=== PATIENT | female | born 1975 | race Caucasian/White ===

== ENCOUNTER 2016-09-28 07:23 | Observation (INO) | payer OTHER ==
[2016-09-28] MEDS ORDERED: Aspirin Low Dose CHEW TAB* 81 MG PO ONE (07:54)
[2016-09-28 08:07] LABS: Hematocrit 42 % (35-47); Hemoglobin 14.2 g/dl (12.0-16.0); Mean Corpuscular HGB Conc 34 g/dl (31-36); Mean Corpuscular Hemoglobin 31 pg (27-31); Mean Corpuscular Volume 91 fL (80-97); Mean Platelet Volume 9 um3 (7.4-10.4); Red Blood Count 4.64 10^6/ul (4.0-5.4); Red Cell Distribution Width 13 % (10.5-15); White Blood Count 12.9 10^3/ul (3.5-10.8)
[2016-09-28] MEDS ORDERED: NS 0.9% 1000 ML* 1,000 ML IV ONE (08:07)
[2016-09-28 08:18] LABS: Albumin 3.7 g/dL (3.2-5.2); BUN/Creatinine Ratio 15.8 (8-20); Calcium 8.8 mg/dL (8.6-10.3); EGFR African American 77.7 (>60); EGFR Non-African American 60.4 (>60); Globulin 3.5 g/dL (2-4); Potassium 3.8 mmol/L (3.5-5.0); Total Bilirubin 0.6 mg/dL (0.2-1.0); Total Protein 7.2 g/dL (6.4-8.9)
[2016-09-28] MEDS ORDERED: Iohexol 350* (CONTRAST) 500 ML MDV IV ONE (08:44)
--- NOTE | 2016-09-28 08:48 | RAD ---
Indication: Chest pain and shortness of breath began last night. Nausea and vomiting shortly afterwards. History of neurofibromatosis. Comparison: None. Technique: Sitting AP and lateral chest views. Report: Clear lungs and pleural spaces. Negative for pneumothorax. The heart, pulmonary vasculature, and mediastinal contours are unremarkable. Negative for free air beneath the diaphragm. Unremarkable osseous structures and soft tissue contours. IMPRESSION: No evidence for acute intrathoracic disease.
[2016-09-28] MEDS ORDERED: Nitroglycerin 0.4 MG/HR PATCH* (10 MG) TRANSDERM ONE (08:56)
[2016-09-28] MEDS ORDERED: Ondansetron INJ* 2 MG/ML VIAL IV ONE (08:56)
--- NOTE | 2016-09-28 09:40 | RAD ---
INDICATION: Pleuritic chest pain. History of neurofibromatosis. COMPARISON: Chest radiograph of the same date. TECHNIQUE: Multidetector CT images were obtained from the lung apices to the upper abdomen with 71 mL Omnipaque 350 IV contrast. Pulmonary angiogram protocol. Multiplanar reformation including with maximum intensity projection. REPORT: Aside from minimal dependent subsegmental atelectasis the lungs and pleural spaces are clear. Negative for central endobronchial lesions. Negative for pneumothorax. Minimal residual thymic tissue in the anterior mediastinum without concern. Negative for thoracic lymphadenopathy, cardiomegaly, pericardial effusion. Normal diameter thoracic aorta. Negative for dissection of the thoracic aorta. No filling defects are identified from the main to the subsegmental pulmonary arteries to indicate presence of a pulmonary embolism. Limited images through the upper abdomen are unremarkable. Negative for suspicious osseous lesions. IMPRESSION: 1. No evidence for pulmonary embolism. 2. No evidence for acute intrathoracic disease.
--- NOTE | 2016-09-28 11:00 | ADMNOTE ---
Subjective Date of Service: 09/28/16 Interval History: ADMISSION HISTORY AND PHYSICAL EXAM: Allergies Allergy/AdvReac Type Severity Reaction Status Date / Time Carbamazepine [From Tegretol] Allergy WBC - Verified 09/28/16 07:33 LEVELS DROPPED SEVERELY HOME MEDICATIONS: NONE HPI: Patient was in her usual state of health until she awoke from sleep about 12: 30 AM today with midsternal chest pain. It has been constant since then, perhaps went from level 10 to level 8 09/27. No cough. SOme SOB. No unusual activity in the recent past. No similar episodes in the past. She is relatively sedentary. Family History: Findings - Mother had coronary cath, nothing serious found. Social History: Findings - Smokes. Her mother is her SDM. She lives with her mother. Unemployed. Past Medical History: Findings - Multiple removals of neurofibromas. Partial hysterectomy. Review of Systems - Measurements Intake and Output: Intake and Output Last 24 Hours 09/26/16 09/27/16 09/28/16 09/29/16 06:59 06:59 06:59 06:59 Weight 179 lb - Review of Systems Constitutional Symptoms: Negative: Weight Gain, Weight Loss, Weakness, Fatigue, Fever, Night Sweats, Unexplained Falls, Other Dermatology: Positive: Normal HEENT: Positive: Normal Eyes: Positive: Normal Thyroid: Positive: Normal Pulmonary: Positive: Normal Cardiology: Positive: Chest Pain Gastroenterology: Positive: Normal Genital - Urinary: Positive: Normal Musculoskeletal: Negative: Joint Pain, Joint Stiffness, Arthritis, Osteoporosis, Low Back Pain , Sciatica, Joint Deformities, Kyphoscoliosis, Other Endocrinology: Positive: Normal Hematologic/Lymphatic: Negative: Anemia, Easy Brusing, Hx Leukemia, Hx Lymphoma, Use of Anticoagulant, Use of Antiplatelet Drugs, Other Neurology: Positive: Normal Psychiatry: Positive: Normal Allergic/Immunologic: Negative: Hx Anaphylaxis, Hx Angioedema, Hx Environmental, Hx Seasonal, Athsma, Hx HIV, Immunocompromise, Swollen Glands LymphNodes, Other Objective Vital Signs 09/28/16 09/28/16 09/28/16 07:31 07:32 07:33 Temperature 99.8 F Pulse Rate 79 73 Respiratory 20 16 Rate Blood Pressure 110/93 97/62 (mmHg) O2 Sat by Pulse 98 100 Oximetry 09/28/16 09/28/16 09/28/16 08:00 08:27 08:30 Temperature Pulse Rate 73 73 Respiratory 19 15 Rate Blood Pressure 89/68 99/66 96/65 (mmHg) O2 Sat by Pulse 98 98 Oximetry 09/28/16 09/28/16 09/28/16 08:46 09:00 10:00 Temperature Pulse Rate 77 88 Respiratory 16 15 Rate Blood Pressure 101/66 103/68 (mmHg) O2 Sat by Pulse 100 100 Oximetry Oxygen Devices in Use Now: Nasal Cannula Appearance: Alert, partly up on ED stretcher. Neutral affect. Looks comfortable. Eyes: No Scleral Icterus Ears/Nose/Mouth/Throat: Clear Oropharnyx, Mucous Membranes Moist Neck: NL Appearance and Movements; NL JVP, No Thyroid Enlargement, Masses Respiratory: Symmetrical Chest Expansion and Respiratory Effort, Clear to Auscultation, Clear to Percussion Cardiovascular: NL Sounds; No Murmurs; No JVD, RRR, No Edema, - - mild sternal pressure reproduces/increases her chest pain. Abdominal: NL Sounds; No Tenderness; No Distention, No Hepatosplenomegaly, - Extremities: No Edema, No Clubbing, Cyanosis, - Skin: No Rash or Ulcers, - - innumerable neurofibromas, confluent on face, many on upper trunk. Neurological: Alert and Oriented x 3, NL Sensation Result Diagrams: 09/28/16 07:27 09/28/16 07:27 Assess/Plan/Problems-Billing Assessment: - Patient Problems (1) Chest wall pain Current Visit: Yes Status: Acute Code(s): R07.89 - OTHER CHEST PAIN SNOMED Code(s): 105971884 Comment: Ibuprofen 600 mg ordered 0800 and 1700 daily plus q 6 hr PRN. I note she uses ibuprofen at home for occ headaches. (2) Tobacco abuse Current Visit: Yes Status: Acute Code(s): Z72.0 - TOBACCO USE SNOMED Code( s): 236561350 Comment: Patient advised to quit smoking and avoid second hand smoke. (3) Neurofibromatosis Current Visit: Yes Status: Acute Comment: Dx noted. (4) Seizure disorder Current Visit: Yes Status: Acute Code(s): G40.909 - EPILEPSY, UNSP, NOT INTRACTABLE, WITHOUT STATUS EPILEPTICUS SNOMED Code(s): 185891821 Comment: Many years since last seizure. Not on AED. Carbamazepine caused drop in blood counts.
[2016-09-28] MEDS ORDERED: Ibuprofen TAB* 600 MG PO PRN (11:15)
--- NOTE | 2016-09-28 13:59 | ED ---
IMinisterio,Juliana, scribed for Juan Hernandez MD on 09/28/16 at 0813 . HPI Chest Pain - HPI Summary HPI Summary: This 41 y/o female presents to ED for constant mid sternal 8/10 CP since 0030 AM this morning. Pain has been waxing and waning since the time of onset, but does not radiate up to throat, jaws, or shoulder. Deep breaths makes the pain worse. Pt denies any BLE pain/tenderness, SOB, or diaphoresis. Blood pressure of 89/63 is noted at time of the initial evaluation. PMHx includes type I neurofibromatosis, but does not include HTN, HLD, or DM. PSHx includes tubal ligation and hysterectomy. FHx significant for positive MT to father in his 40s. Pt is nonsmoker, nondrinker, and does not abuse any substance. - History of Current Complaint Chief Complaint: EDChestPainROMI Time Seen by Provider: 09/28/16 07:35 Hx Obtained From: Patient Onset/Duration: Started Hours Ago, Atraumatic, Still Present Timing: Constant Initial Severity: Moderate Current Severity: Moderate Pain Intensity: 8 Pain Scale Used: 0-10 Numeric Chest Pain Location: Mid Sternal Chest Pain Radiates: No Character: Dull/Aching Aggravating Factor(s): Deep Breaths Alleviating Factor(s): Nothing Associated Signs and Symptoms: Positive: Chest Pain. Negative: Shortness of Breath, Fever - Allergy/Home Medications Allergies/Adverse Reactions: Allergies Allergy/AdvReac Type Severity Reaction Status Date / Time Carbamazepine [From Tegretol] Allergy WBC - Verified 09/28/16 07:33 LEVELS DROPPED SEVERELY PMH/Surg Hx/FS Hx/Imm Hx Endocrine/Hematology History: Denies: Hx Diabetes Cardiovascular History: Denies: Hx Hypertension, Hx Pacemaker/ICD History: Denies: Hx Renal Disease Sensory History: Denies: Hx Hearing Aid Psychiatric History: Denies: Hx Panic Disorder - Cancer History Hx Chemotherapy: No Hx Radiation Therapy: No - Surgical History Surgery Procedure, Year, and Place: TUBAL LIGATION 1999. HYSTERECTOMY 2013. FACIAL - NEUROFIBROMATOSIS Infectious Disease History: Denies: Traveled Outside the [place] in Last 30 Days - Family History Known Family History: Positive: Cardiac Disease - positive for MT to father in his 40s. , Other - Positive for breast CA. - Social History Occupation: Disabled Alcohol Use: None Hx Substance Use: No Substance Use Type: Reports: None Hx Tobacco Use: No Smoking Status (MU): Never Smoked Tobacco Review of Systems Negative: Fever, Chills Negative: Sore Throat, Other - eye redness Positive: Chest Pain Negative: Shortness Of Breath, Cough Negative: Abdominal Pain, Vomiting Negative: dysuria, hematuria Negative: Myalgia, Edema Negative: Rash Neurological: Other - negative dizziness Negative: Anxious, Depressed All Other Systems Reviewed And Are Negative: Yes Physical Exam - Summary Physical Exam Summary: Constitutional: Well-developed, Well-nourished, Alert. (+) Distressed, mild to moderate Skin: Warm, Dry. Chronic skin changes secondary to neurofibromatosis. HENT: Normocephalic; Atraumatic Eyes: Conjunctiva normal Neck: Musculoskeletal ROM normal neck. (-) JVD, (-) Stridor, (-) Tracheal deviation Cardio: Rhythm regular, rate normal, Heart sounds normal; Intact distal pulses; The pedal pulses are 2+ and symmetric. Radial pulses are 2+ and symmetric. (-) Murmur. Pulmonary/Chest wall: Effort normal. (-) Respiratory distress, (-) Wheezes, (-) Rales Abd: Soft, (-) Tenderness, (-) Distension, (-) Guarding, (-) Rebound Musculoskeletal: (-) Edema Lymph: (-) Cervical adenopathy Neuro: Alert, Oriented x3 Psych: Mood and affect Normal Triage Information Reviewed: Yes Vital Signs On Initial Exam: Initial Vitals BP 110/93 09/28/16 07:31 Vital Signs Reviewed: Yes Diagnostics - Vital Signs Vital Signs Temp Pulse Resp BP Pulse Ox 09/28/16 07:33 99.8 F 73 16 97/62 100 09/28/16 07:32 79 20 98 09/28/16 07:31 110/93 - Laboratory Result Diagrams: 09/28/16 07:27 09/28/16 07:27 Lab Statement: Any lab studies that have been ordered have been reviewed, and results considered in the medical decision making process. - Radiology CXR Xray Interpretation: No Acute Changes Radiology Interpretation Completed By: Radiologist - CT CTA Chest/Thorax CT Interpretation: No Acute Changes - 1. No evidence for pulmonary embolism. 2. No evidence for acute intrathoracic disease. CT Interpretation Completed By: Radiologist - EKG 0717 Cardiac Rate: NL - 73 bpm EKG Rhythm: Sinus Rhythm ST Segment: Normal Ectopy: None Chest Pain Course/Dx - Course Assessment/Plan: THis 41 y/o female presents to ED for acute CP since 0300 AM this morning. FHx is significant for CAD to mother, who had angioplasty in early age, and father, who had his first MT in his 40s. Blood work was wnl with negative trop. CXR and CTA chest/thorax did not indicate any etiologies. Hospitalist was consulted, and pt was admitted for observation and definitive care. - Diagnoses Provider Diagnoses: Chest pain - Provider Notifications Discussed Care Of Patient With: Dr. Crowley (Hospitalist) at 1005 AM Time Discussed With Above Provider: 10:05 Instructed by Provider To: Admit As Inpatient Discharge - Discharge Plan Condition: Stable Disposition: ADMITTED TO [facility] Referrals: Aleah Ramos PA [Primary Care Provider] - The documentation as recorded by the Ministerio jin Soohyun accurately reflects the service I personally performed and the decisions made by , Juan Hernandez MD.
[2016-09-28] MEDS: Ibuprofen TAB* 600 MG PO SCH (16:06)
[2016-09-28] MEDS ORDERED: NS 0.9% 500 ML* 500 ML IV SCH (21:00)
[2016-09-29] MEDS: Ibuprofen TAB* 600 MG PO SCH (08:14)
[2016-09-29 08:48] VITALS: BP 94/51
[2016-09-29] MEDS ORDERED: Influenza VAC *QUAD* 2016-17* 0.5 ML SYRINGE IM ONE (09:00)
--- NOTE | 2016-09-29 10:49 | DCNOTE ---
Patient seen this morning. Has no complaints, says she has not had any chest pain since yesterday afternoon. On exam, RRR, s1 and s2 present, no m/g/r, abd soft, NTND, BS+, lungs clear, numerous NF lesions on face Likely MSK chest pain, d/c home today
--- NOTE | 2016-09-30 19:40 | DS ---
DISCHARGE SUMMARY: DATE OF ADMISSION: 09/28/16 DATE OF DISCHARGE: 09/29/16 PRIMARY CARE PHYSICIAN: ZAK Seay. PRINCIPAL DISCHARGE DIAGNOSIS: Chest pain. SECONDARY DIAGNOSES: 1. Neurofibromatosis. 2. Seizure disorder. STUDIES DONE DURING HOSPITALIZATION: Chest x-ray: Impression: No evidence for acute intrathoracic disease. CTA of the chest: No evidence for pulmonary embolism, no evidence for acute intrathoracic disease. DISCHARGE MEDICATION REGIMEN: None. HISTORY OF PRESENT ILLNESS AND HOSPITAL SUMMARY: Please see the full history and physical by Dr. Walker Crowley for full details. Briefly, Ms. Fuentes is a 41 -year- old female with past medical history as above, who presented to the hospital with midsternal chest pain that was quite severe. She had no family history of coronary disease but she was a smoker. She was admitted to the hospital and it was felt that this was probably due to musculoskeletal issue. She had 3 negative troponins and an unremarkable EKG. She was treated with ibuprofen with resolution of her pain. She did have some hypotension in the hospital. She states her blood pressures usually run low, this was a little bit lower than normal. She did not feel any lightheadedness or dizziness with the blood pressures. She was discharged home with followup with her PCP as an outpatient. TIME SPENT: Total time spent on this discharge, 35 minutes. This is a summary of the hospitalization, please see the full medical record for further details. CC: ZAK Seay* [id number]/[facility] #: [id number] MTDD
== END 2016-09-29 11:20 | disposition home or self-care (01) ==
LOC: ED 07:23 → MEDTELE 11:18 → MED 14:10
PROVIDERS: ADMIT Internal Medicine; ATTEND Hospitalist
DX: R07.9 Chest pain, unspecified (principal); R06.02 Shortness of breath; Q85.00 Neurofibromatosis, unspecified; G40.909 Epilepsy, unspecified, not intractable, without status epilepticus; Z23 Encounter for immunization; F17.200 Nicotine dependence, unspecified, uncomplicated; Z88.8 Allergy status to other drugs, medicaments and biological substances
CPT/HCPCS: 36415; 71020; 71275; 80053; 83605; 84484; 85025; 90471; 90686; 93005; 96361; 96374; 99284; A9270-GY; G0008; G0378; J2405; Q9967

== ENCOUNTER 2016-11-21 11:31 | Emergency (ER) | payer OTHER ==
--- NOTE | 2016-11-21 11:57 | ED ---
Skin Complaint - HPI Summary HPI Summary: 41 F presents with itching and pain in right foot after getting bite by a possible spider bite in the night three nights ago. She was given prednisone and told to take bendaryl. She said she has notice some redness around the area. She denies any fever, pus, or decrease range of motion in foot. She denies any injury to the foot. - History of Current Complaint Chief Complaint: EDRashSkinAbscess Time Seen by Provider: 11/21/16 11:47 Stated Complaint: POSS SPIDER BITE Pain Intensity: 10 - Additional Pertinent History Primary Care Physician: DIMITRIOS - Allergy/Home Medications Allergies/Adverse Reactions: Allergies Allergy/AdvReac Type Severity Reaction Status Date / Time Carbamazepine [From Tegretol] Allergy WBC - Verified 11/21/16 11:38 LEVELS DROPPED SEVERELY PMH/Surg Hx/FS Hx/Imm Hx Endocrine/Hematology History: Denies: Hx Diabetes Cardiovascular History: Denies: Hx Hypertension, Hx Pacemaker/ICD History: Denies: Hx Renal Disease Musculoskeletal History: Denies: Hx Arthritis, Hx Osteoporosis Sensory History: Denies: Hx Hearing Aid Neurological History: Reports: Other Neuro Impairments/Disorders - neurofibosis Psychiatric History: Denies: Hx Panic Disorder - Cancer History Hx Chemotherapy: No Hx Radiation Therapy: No - Surgical History Surgery Procedure, Year, and Place: TUBAL LIGATION 1999. HYSTERECTOMY 2013. FACIAL - NEUROFIBROMATOSIS Infectious Disease History: No Infectious Disease History: Denies: Traveled Outside the [place] in Last 30 Days - Family History Known Family History: Positive: Cardiac Disease - positive for [place] to father in his 40s. , Other - Positive for breast CA. - Social History Alcohol Use: None Hx Substance Use: No Substance Use Type: Reports: None Hx Tobacco Use: No Smoking Status (MU): Former Smoker Review of Systems Negative: Fever Negative: Chest Pain Negative: Shortness Of Breath Positive: Other - bite like wounds on right ankle All Other Systems Reviewed And Are Negative: Yes Physical Exam Triage Information Reviewed: Yes Vital Signs On Initial Exam: Initial Vitals Temp Pulse Resp BP Pulse Ox 98.2 F 70 16 114/59 100 11/21/16 11:38 11/21/16 11:38 11/21/16 11:38 11/21/16 11:38 11/21/16 11:38 Vital Signs Reviewed: Yes Appearance: Positive: Well-Appearing Skin: Positive: Warm, Dry, Other - bite like wound present on top of foot with scratches near area with 1/2 cm surrounding erythema around area Head/Face: Positive: Normal Head/Face Inspection Eyes: Positive: Normal, Conjunctiva Clear Respiratory/Lung Sounds: Positive: Clear to Auscultation, Breath Sounds Present Cardiovascular: Positive: Normal, RRR Diagnostics - Vital Signs Vital Signs Temp Pulse Resp BP Pulse Ox 11/21/16 11:38 98.2 F 70 16 114/59 100 - Laboratory Lab Statement: Any lab studies that have been ordered have been reviewed, and results considered in the medical decision making process. Course/Dx - Course Course Of Treatment: 41F presents with bite like lesion on right foot that has been there for 3 days. is taking bendaryl and prednisone. noticed that some redness around lesions and pain and ithcing has gotten worst. Will start on keflex and encouraged to add topical OTC hydrocoritsone to help with the itching. Patient understands and agrees with plan - Differential Diagnoses - Skin Complaint Differential Diagnoses: Contact Dermatitis, Local Allergic Reaction, Other - bite lesion - Diagnoses Provider Diagnoses: Reaction to insect bite Discharge - Discharge Plan Condition: Good Disposition: HOME Prescriptions: Cephalexin CAP* [Keflex CAP*] 500 mg PO BID #14 cap Patient Education Materials: Contact Dermatitis (ED) Referrals: Aleah Ramos PA [Primary Care Provider] - Additional Instructions: Continue prednisone Continue Benadryl every 6 hours Apply OTC hydrocortisone three times a day Take antibiotic twice a day for 7 days Follow up with primary if no improvement in 5 days Return to ED if develop fever, spreading redness, or pus or any new or worsening symptoms
[2016-11-21 12:18] VITALS: BP 91/56
== END 2016-11-21 12:29 | disposition home or self-care (01) ==
LOC: ED 11:31
DX: S90.861A Insect bite (nonvenomous), right foot, initial encounter (principal); W57.XXXA Bitten or stung by nonvenomous insect and other nonvenomous arthropods, initial encounter; Y92.9 Unspecified place or not applicable
CPT/HCPCS: 36415; 86703; 99282

== ENCOUNTER 2017-09-30 00:34 | Emergency (ER) | payer OTHER ==
[2017-09-30] MEDS ORDERED: Acetaminophen TAB* 325 MG PO ONE (01:08)
[2017-09-30] MEDS ORDERED: Aspirin Low Dose CHEW TAB* 81 MG PO ONE (01:08)
[2017-09-30] MEDS ORDERED: Ketorolac INJ* 30 MG/ML 1 ML VIAL IV ONE (01:08)
[2017-09-30] MEDS ORDERED: NS 0.9% 1000 ML* 1,000 ML IV ONE (01:08)
[2017-09-30 01:49] LABS: ABS Basophils 0 10^3/ul (0-0.2); ABS Eosinophils 0.3 10^3/ul (0-0.6); ABS Lymphocytes 1.5 10^3/ul (1.0-4.8); ABS Monocytes 0.8 10^3/ul (0-0.8); ABS Neutrophils 9.8 10^3/ul (1.5-7.7); ABS Nucleated RBC 0 10^3/ul; Hematocrit 41 % (35-47); Hemoglobin 13.9 g/dl (12.0-16.0); Lymphocyte % 12.2 % (25-47); Mean Corpuscular HGB Conc 34 g/dl (31-36); Mean Corpuscular Hemoglobin 31 pg (27-31); Mean Corpuscular Volume 91 fL (80-97); Mean Platelet Volume 9 um3 (7.4-10.4); Nucleated Red Blood Cells % 0; Platelet Count 177 10^3/ul (150-450); Red Cell Distribution Width 13 % (10.5-15); White Blood Count 12.4 10^3/ul (3.5-10.8)
[2017-09-30 02:01] LABS: INR 0.95 (0.77-1.02)
[2017-09-30 02:38] LABS: EGFR Non-African American 58.1 (>60)
[2017-09-30] MEDS ORDERED: Ondansetron INJ* 2 MG/ML VIAL IV ONE ×2 (02:47→02:50)
[2017-09-30] MEDS ORDERED: Morphine INJ* 4 MG/ML 1 ML CARPUJECT IV ONE (02:47)
[2017-09-30] MEDS ORDERED: Morphine INJ* 4 MG/ML 1 ML CARPUJECT IM ONE (02:50)
[2017-09-30] MEDS ORDERED: Iodixanol* (CONTRAST) 320 MG/ML 100 ML SDV IV ONE (02:54)
[2017-09-30 04:40] VITALS: BP 130/74
--- NOTE | 2017-09-30 08:00 | RAD ---
HISTORY: Chest pain COMPARISONS: September 28, 2016 VIEWS: 1: frontal portable view of the chest at 1:25 AM FINDINGS: LINES AND TUBES: None. CARDIOMEDIASTINAL SILHOUETTE: The cardiomediastinal silhouette is normal for portable technique. PLEURA: The costophrenic angles are sharp. No pleural abnormalities are noted. LUNG PARENCHYMA: The lungs are clear. ABDOMEN: The upper abdomen is clear. There is no subphrenic gas. BONES AND SOFT TISSUES: No bone or soft tissue abnormalities are noted. IMPRESSION: NO ACTIVE CARDIOPULMONARY DISEASE.
--- NOTE | 2017-09-30 08:07 | RAD ---
Indication: Shortness of breath, evaluate for pulmonary embolus. CTA of the chest was performed after IV contrast administration. Coronal and sagittal reconstructed images were obtained. Pulmonary arterial tree is well opacified. There are no filling defects present to suggest pulmonary embolus. Inferior thyroid lobes are unremarkable. No mediastinal or hilar adenopathy is noted. The heart demonstrates no pericardial effusion. There is vague soft tissue in the anterior mediastinum likely representing residual thymus. The trachea and major bronchi appear patent. The lung pool demonstrate no pleural fluid, nodules or masses. Dependent changes are noted in the lung bases. No alveolar consolidation is noted. A small 2 mm nodule is noted in the left upper lobe reference image 22 of 74. No other nodules are noted. The visualized abdominal organs are grossly unremarkable. The bony structures are grossly unremarkable. IMPRESSION: No evidence of pulmonary embolus is noted.
--- NOTE | 2017-10-01 00:40 | ED ---
Kaz Pinon Angela, scribed for Skyler Cabrera MD on 09/30/17 at 0056 . HPI Chest Pain - HPI Summary HPI Summary: This pt is a 42 y/o female presenting to [facility] via EMS c/o mid sternal chest pain since 22:30 last night (09/29/17). Pt reports her chest pain radiates down her right arm. She describes her chest pain as constant, sharp and pressure pain. Pt notes she has a pleuritic chest pain. Pt rates her pain 10/10 in severity. Associated symptoms include nausea, vomiting, and chills. She denies fever, cough, congestion. EMS administered NTG en route. PMHx includes seizures. - History of Current Complaint Chief Complaint: EDChestWallPain Time Seen by Provider: 09/30/17 00:38 Hx Obtained From: Patient Onset/Duration: Started Hours Ago, Still Present Timing: Lasting Hours Current Severity: Severe Pain Intensity: 10 Pain Scale Used: 0-10 Numeric Chest Pain Location: Mid Sternal Chest Pain Radiates: Yes Chest Pain Radiates To:: Arm - right Character: Pressure/Squeezing - pressure, Sharp/Stabbing - sharp Aggravating Factor(s): Nothing Alleviating Factor(s): Nothing Associated Signs and Symptoms: Positive: Chills, Vomiting, Other: - POS: nausea. Negative: Fever, Cough, Nasal Congestion - Additional Pertinent History Primary Care Physician: DIMITRIOS - Allergy/Home Medications Allergies/Adverse Reactions: Allergies Allergy/AdvReac Type Severity Reaction Status Date / Time Carbamazepine [From Tegretol] Allergy WBC - Verified 11/21/16 11:38 LEVELS DROPPED SEVERELY PMH/Surg Hx/FS Hx/Imm Hx Endocrine/Hematology History: Denies: Hx Diabetes Cardiovascular History: Denies: Hx Hypertension, Hx Pacemaker/ICD History: Denies: Hx Renal Disease Musculoskeletal History: Denies: Hx Arthritis, Hx Osteoporosis Sensory History: Denies: Hx Hearing Aid Neurological History: Reports: Other Neuro Impairments/Disorders - neurofibosis Psychiatric History: Denies: Hx Panic Disorder - Cancer History Hx Chemotherapy: No Hx Radiation Therapy: No - Surgical History Surgery Procedure, Year, and Place: TUBAL LIGATION 1999. HYSTERECTOMY 2013. FACIAL - NEUROFIBROMATOSIS Infectious Disease History: No Infectious Disease History: Denies: Traveled Outside the [place] in Last 30 Days - Family History Known Family History: Positive: Cardiac Disease - positive for [place] to father in his 40s. , Other - Positive for breast CA. - Social History Alcohol Use: None Hx Substance Use: No Substance Use Type: Reports: None Hx Tobacco Use: No Smoking Status (MU): Former Smoker Review of Systems Positive: Chills. Negative: Fever Negative: Other - congestion Positive: Chest Pain Negative: Cough Positive: Vomiting, Nausea Musculoskeletal: Negative Skin: Negative Neurological: Negative All Other Systems Reviewed And Are Negative: Yes Physical Exam - Summary Physical Exam Summary: VITAL SIGNS: Reviewed. GENERAL: Patient is a well-developed and nourished female. Patient is not in any acute respiratory distress. HEAD AND FACE: No signs of trauma. No ecchymosis, hematomas or skull depressions. No sinus tenderness. EYES: PERRLA, EOMI x 2, No injected conjunctiva, no nystagmus. EARS: Hearing grossly intact. Ear canals and tympanic membranes are within normal limits. MOUTH: Oropharynx within normal limits. NECK: Supple, trachea is midline, no adenopathy, no JVD, no carotid bruit, no c- spine tenderness, neck with full ROM. CHEST: Symmetric. Tenderness over the anterior chest wall, more right than left. LUNGS: Clear to auscultation bilaterally. No wheezing or crackles. CVS: Regular rate and rhythm, S1 and S2 present, no murmurs or gallops appreciated. ABDOMEN: Soft, non-tender. No signs of distention. No rebound no guarding, and no masses palpated. Bowel sounds are normal. EXTREMITIES: FROM in all major joints, no edema, no cyanosis or clubbing. NEURO: Alert and oriented x 3. No acute neurological deficits. Speech is normal and follows commands. SKIN: Dry and warm Triage Information Reviewed: Yes Vital Signs On Initial Exam: Initial Vitals Temp Pulse Resp BP Pulse Ox 99.5 F 71 20 105/71 99 09/30/17 00:43 09/30/17 00:43 09/30/17 00:43 09/30/17 00:43 09/30/17 00:43 Vital Signs Reviewed: Yes - Castor Coma Scale Coma Scale Total: 15 Diagnostics - Vital Signs Vital Signs Temp Pulse Resp BP Pulse Ox 09/30/17 00:43 99.5 F 71 20 105/71 99 - Laboratory Result Diagrams: 09/30/17 01:33 09/30/17 01:33 Lab Statement: Any lab studies that have been ordered have been reviewed, and results considered in the medical decision making process. - Radiology Chest XR Xray Interpretation: No Acute Changes - No acute process. Radiology Interpretation Completed By: ED Physician - CT CTA chest/thorax CT Interpretation: No Acute Changes - IMPRESSION: No pulmonary embolism. No aortic dissection or aneurysm. No pneumonia or pleural effusions. Minimal anterior mediastinal soft tissue, probably thymic. Dr. Cabrera has reviewed this radiology report. CT Interpretation Completed By: Radiologist - EKG 00:40 Cardiac Rate: NL EKG Rhythm: Sinus Rhythm - at 74 bpm EKG Interpretation: Normal axis. Normal interval. No ischemic changes. Re-Evaluation - Re-Evaluation First Eval Re-Evaluation Time: 04:14 Comment: I reviewed CTA results with the pt and the plan to discharge. Chest Pain Course/Dx - Course Course Of Treatment: Pt is a 42 y/o female who presents with mid sternal pleuritic chest pain since 22:30 last night (09/29/17). Pt reports her chest pain radiates down her right arm. She describes her chest pain as constant, sharp and pressure pain. Chest XR is negative. CTA chest is negative. Pt will be discharged home with follow up from her PCP. She will be given a prescription for motrin and percocet. Pt understands and agrees. - Diagnoses Provider Diagnoses: Chest wall pain Discharge - Discharge Plan Condition: Stable Disposition: HOME Prescriptions: Ibuprofen TAB* [Motrin TAB* 800 MG] 800 mg PO ONCE PRN #30 tab MDD 4 PRN Reason: Pain oxyCODONE/Acetamin 5/325 MG* [Percocet 5/325 TAB*] 1 tab PO Q6H PRN #14 tab MDD 4 PRN Reason: Pain Patient Education Materials: Chest Wall Pain (ED) Referrals: Aleah Ramos PA [Primary Care Provider] - Additional Instructions: Please follow up with your primary care provider. RETURN TO EMERGENCY DEPARTMENT FOR ANY NEW OR WORSENING SYMPTOMS. The documentation as recorded by the Kaz jin Angela accurately reflects the service I personally performed and the decisions made by me, Skyler Cabrera MD.
== END 2017-09-30 04:36 | disposition home or self-care (01) ==
LOC: ED 00:34
DX: R07.89 Other chest pain (principal); R11.2 Nausea with vomiting, unspecified; Z87.891 Personal history of nicotine dependence
CPT/HCPCS: 36415; 71045; 71275; 80053; 82550; 83605; 83735; 84484; 85025; 85379; 85610; 85730; 87040; 87502; 93005; 96374; 96375; 99283; A9270-GY; J1885; J2270; J2405; Q9967

== ENCOUNTER 2018-01-19 11:15 | Emergency (ER) | payer OTHER ==
[2018-01-19] MEDS ORDERED: NS 0.9% 1000 ML* 1,000 ML IV ONE (14:46)
[2018-01-19] MEDS ORDERED: Ketorolac INJ* 30 MG/ML 1 ML VIAL IV ONE (14:49)
[2018-01-19 15:12] LABS: ABS Basophils 0.1 10^3/ul (0-0.2); ABS Eosinophils 0.2 10^3/ul (0-0.6); ABS Lymphocytes 2.2 10^3/ul (1.0-4.8); ABS Monocytes 0.6 10^3/ul (0-0.8); ABS Neutrophils 3.5 10^3/ul (1.5-7.7); ABS Nucleated RBC 0 10^3/ul; Eosinophil % 3.3 % (0-6); Hematocrit 41 % (35-47); Hemoglobin 13.5 g/dl (12.0-16.0); Mean Corpuscular HGB Conc 33 g/dl (31-36); Mean Corpuscular Hemoglobin 31 pg (27-31); Mean Corpuscular Volume 92 fL (80-97); Mean Platelet Volume 8.7 um3 (7.4-10.4); Nucleated Red Blood Cells % 0; Platelet Count 148 10^3/ul (150-450); Red Cell Distribution Width 14 % (10.5-15); White Blood Count 6.6 10^3/ul (3.5-10.8)
[2018-01-19 15:50] LABS: EGFR Non-African American 61.5 (>60); INR 0.96 (0.77-1.02)
[2018-01-19] MEDS ORDERED: Iohexol 300* (CONTRAST) 10 ML SDV IV ONE (16:02)
--- NOTE | 2018-01-19 16:33 | RAD ---
Indication: Submandibular swelling with difficulty swallowing. Contrast: Administered 50.1 ml of Contrast -- mg/ml CT of the neck was performed without and with IV contrast. Coronal and sagittal reconstructed images were obtained. The skull base demonstrates no evidence of abnormal masses. Nasopharynx is grossly unremarkable. The parotid glands appear symmetric with no evidence of sialolith. The submandibular glands appear intact and appear normal in size. The submandibular glands appear symmetric in size without evidence of stones. Scattered submandibular lymph nodes are noted measuring up to 3 to 5 mm. Level 2 lymph nodes on the right measure up to 12 mm. Additional lymph nodes are noted adjacent to the right submandibular gland measuring up to 11 mm and 8 mm. There is asymmetry at the base of the tongue. Underlying mass is not excluded and direct inspection is suggested. Small level 2 lymph nodes are noted on the left measuring up to 9 mm. No bony destruction is noted. Mastoid air cells are otherwise unremarkable. IMPRESSION: No evidence of sialolith is noted. No abnormally dilated salivary glands are noted. Enlarged lymph nodes predominantly in the right neck including level 2 lymph nodes on the right measuring up to 12 mm and in addition right submandibular lymph nodes measuring up to 11 and 8 mm in the short axis. There is asymmetry at the base of the tongue on the right. Direct inspection of the base of the tongue is suggested.
[2018-01-19] MEDS ORDERED: cefTRIAXone(*) 1 GM in NS 0.9% 50 ML* 50 ML IVPB ONE (17:31)
--- NOTE | 2018-01-19 17:41 | ED ---
Jose De Jesus Pinon Jennifer, scribed for Sunil Mckeon MD on 01/19/18 at 1439 . Throat Pain/Nasal Congestion - HPI Summary HPI Summary: The patient is a 42 year old female who presents with throat pain since yesterday morning. The patient states she woke up with throat pain and went to [facility], where she was diagnosed with salivary gland blockage. The patient has a follow up with her PCP tomorrow but couldnt wait until then because of the pain. She states it is a sharp pain that is rated 10/10 and is located on the right of her throat, and it hurts to swallow. She additionally complains of fever but denies abdominal pain. She was given Ibuprofen at [facility] yesterday to alleviate her pain. - History of Current Complaint Chief Complaint: EDThroatPain Time Seen by Provider: 01/19/18 14:30 Hx Obtained From: Patient Onset/Duration: Sudden Onset, Lasting Days - one day, Still Present, Worse Since Severity: Severe Cough: None - Allergies/Home Medications Allergies/Adverse Reactions: Allergies Allergy/AdvReac Type Severity Reaction Status Date / Time MS Carbamazepine Allergy WBC - Verified 11/21/16 11:38 [From Tegretol] LEVELS DROPPED SEVERELY PMH/Surg Hx/FS Hx/Imm Hx Endocrine/Hematology History: Denies: Hx Diabetes Cardiovascular History: Denies: Hx Hypertension, Hx Pacemaker/ICD History: Denies: Hx Renal Disease Musculoskeletal History: Denies: Hx Arthritis, Hx Osteoporosis Sensory History: Denies: Hx Hearing Aid Neurological History: Reports: Other Neuro Impairments/Disorders - neurofibosis Psychiatric History: Denies: Hx Panic Disorder - Cancer History Hx Chemotherapy: No Hx Radiation Therapy: No - Surgical History Surgery Procedure, Year, and Place: TUBAL LIGATION 1999. HYSTERECTOMY 2013. FACIAL - NEUROFIBROMATOSIS Infectious Disease History: No Infectious Disease History: Denies: Traveled Outside the [place] in Last 30 Days - Family History Known Family History: Positive: Cardiac Disease - positive for [place] to father in his 40s. , Other - Positive for breast CA. - Social History Alcohol Use: None Hx Substance Use: No Substance Use Type: Reports: None Hx Tobacco Use: No Smoking Status (MU): Former Smoker Review of Systems Positive: Fever Positive: Sore Throat Negative: Abdominal Pain All Other Systems Reviewed And Are Negative: Yes Physical Exam - Summary Physical Exam Summary: General: well-appearing, no pain distress Skin: warm, color reflects adequate perfusion, dry Head: normal Eyes: EOMI, RUSLAN ENT: Tender to palpation under angle of right jaw, there is some swelling there. Posterior pharynx open. Neck: supple, nontender Respiratory: CTA, breath sounds present Cardiovascular: RRR Abdomen: soft, nontender Bowel: present Musculoskeletal: normal, strength/ROM intact Neurological: normal, sensory/motor intact, A&O x3 Psychological: affect/mood appropriate Triage Information Reviewed: Yes Vital Signs On Initial Exam: Initial Vitals Temp Pulse Resp BP Pulse Ox 98.2 F 79 16 108/64 100 01/19/18 11:17 01/19/18 11:17 01/19/18 11:17 01/19/18 11:17 01/19/18 11:17 Vital Signs Reviewed: Yes Diagnostics - Vital Signs Vital Signs Temp Pulse Resp BP Pulse Ox 01/19/18 14:23 61 99 01/19/18 13:58 96.7 F 76 16 107/68 99 01/19/18 11:17 98.2 F 79 16 108/64 100 - Laboratory Lab Results: Lab Results 01/19/18 01/19/18 01/19/18 Range/Units 14:57 14:57 14:57 WBC 6.6 (3.5-10.8) 10^3/ul RBC 4.40 (4.0-5.4) 10^6/ul Hgb 13.5 (12.0-16.0) g/dl Hct 41 (35-47) % MCV 92 (80-97) fL MCH 31 (27-31) pg MCHC 33 (31-36) g/dl RDW 14 (10.5-15) % Plt Count 148 L (150-450) 10^3/ul MPV 8.7 (7.4-10.4) um3 Neut % (Auto) 53.2 (38-83) % Lymph % (Auto) 33.0 (25-47) % [place] % (Auto) 9.7 H (0-7) % Eos % (Auto) 3.3 (0-6) % Baso % (Auto) 0.8 (0-2) % Absolute Neuts (auto) 3.5 (1.5-7.7) 10^3/ul Absolute Lymphs (auto) 2.2 (1.0-4.8) 10^3/ul Absolute Monos (auto) 0.6 (0-0.8) 10^3/ul Absolute Eos (auto) 0.2 (0-0.6) 10^3/ul Absolute Basos (auto) 0.1 (0-0.2) 10^3/ul Absolute Nucleated RBC 0 10^3/ul Nucleated RBC % 0 INR (Anticoag Therapy) 0.96 (0.77-1.02) Sodium 136 L (139-145) mmol/L Potassium 3.9 (3.5-5.0) mmol/L Chloride 104 (101-111) mmol/L Carbon Dioxide 24 (22-32) mmol/L Anion Gap 8 (2-11) mmol/L BUN 10 (6-24) mg/dL Creatinine 0.99 H (0.51-0.95) mg/dL Est GFR ( Amer) 79.1 (>60) Est GFR (Non-Af Amer) 61.5 (>60) BUN/Creatinine Ratio 10.1 (8-20) Glucose 81 (70-100) mg/dL Lactic Acid (0.5-2.0) mmol/L Calcium 8.9 (8.6-10.3) mg/dL Total Bilirubin 0.40 (0.2-1.0) mg/dL AST 17 (13-39) U/L ALT 11 (7-52) U/L Alkaline Phosphatase 31 L (34-104) U/L C-Reactive Protein 11.70 H (< 5.00) mg/L Total Protein 7.1 (6.4-8.9) g/dL Albumin 3.8 (3.2-5.2) g/dL Globulin 3.3 (2-4) g/dL Albumin/Globulin Ratio 1.2 (1-3) Beta HCG, Quant < 0.60 mIU/mL 01/19/18 Range/Units 14:57 WBC (3.5-10.8) 10^3/ul RBC (4.0-5.4) 10^6/ul Hgb (12.0-16.0) g/dl Hct (35-47) % MCV (80-97) fL MCH (27-31) pg MCHC (31-36) g/dl RDW (10.5-15) % Plt Count (150-450) 10^3/ul MPV (7.4-10.4) um3 Neut % (Auto) (38-83) % Lymph % (Auto) (25-47) % [place] % (Auto) (0-7) % Eos % (Auto) (0-6) % Baso % (Auto) (0-2) % Absolute Neuts (auto) (1.5-7.7) 10^3/ul Absolute Lymphs (auto) (1.0-4.8) 10^3/ul Absolute Monos (auto) (0-0.8) 10^3/ul Absolute Eos (auto) (0-0.6) 10^3/ul Absolute Basos (auto) (0-0.2) 10^3/ul Absolute Nucleated RBC 10^3/ul Nucleated RBC % INR (Anticoag Therapy) (0.77-1.02) Sodium (139-145) mmol/L Potassium (3.5-5.0) mmol/L Chloride (101-111) mmol/L Carbon Dioxide (22-32) mmol/L Anion Gap (2-11) mmol/L BUN (6-24) mg/dL Creatinine (0.51-0.95) mg/dL Est GFR ( Amer) (>60) Est GFR (Non-Af Amer) (>60) BUN/Creatinine Ratio (8-20) Glucose (70-100) mg/dL Lactic Acid 1.1 (0.5-2.0) mmol/L Calcium (8.6-10.3) mg/dL Total Bilirubin (0.2-1.0) mg/dL AST (13-39) U/L ALT (7-52) U/L Alkaline Phosphatase (34-104) U/L C-Reactive Protein (< 5.00) mg/L Total Protein (6.4-8.9) g/dL Albumin (3.2-5.2) g/dL Globulin (2-4) g/dL Albumin/Globulin Ratio (1-3) Beta HCG, Quant mIU/mL Result Diagrams: 01/19/18 14:57 01/19/18 14:57 Lab Statement: Any lab studies that have been ordered have been reviewed, and results considered in the medical decision making process. - CT Neck CT CT Interpretation: Positive (See Comments) - No evidence of sialolith is noted. No abnormally dilated salivary glands are noted. Enlarged lymph nodes predominantly in the right neck including level 2 lymph nodes on the right measuring up to 12 mm and in addition right submandibular lymph nodes measuring up to 11 and 8 mm in the short axis. There is asymmetry at the base of the tongue on the right. Direct inspection of the base of the tongue is suggested. Dr. Mckeon has reviewed this report. CT Interpretation Completed By: Radiologist EENT Course/Dx - Course Course Of Treatment: Medications reviewed. Allergies noted. DISCUSSED RESULTS WITH THE PATIENT. LYMPHADENOPATHY PALPATED BUT, NO ORAL MASS SEEN ON ENT EXAM. WILL RX AUGMENTIN IN CASE THE LYMPH NODE ARE REACTING TO AN INFECTION. F/U ENT. PATIENT HAS PMD F/U SCHEDULED FOR TOMORROW. DISCUSSED RETURN TO THE ED FOR ANY INCREASED DIFFICULTY SWALLOW OR BREATHING OR FEELING ILL OR ANY QUESTIONS OR CONCERNS. - Diagnoses Provider Diagnoses: Lymphadenopathy of head and neck Discharge - Sign-Out/Discharge Documenting (check all that apply): Discharge/Admit/Transfer - Discharge Plan Condition: Stable Disposition: HOME Prescriptions: Amoxicillin/Clavulanate TAB* [Augmentin TAB 875*] 875 mg PO BID #20 tab HYDROcodone/ACETAMIN 5-325 MG* [[place] 5-325 TAB*] 1 tab PO Q4H PRN #20 tab MDD 6 PRN Reason: Pain Patient Education Materials: Lymphadenopathy (ED) Referrals: Reinaldo PARHAM,Reji Najera [Primary Care Provider] - Iván Diez MD [Medical Doctor] - [facility] [Provider Group] Additional Instructions: FOLLOW UP WITH YOUR DOCTOR TOMORROW SCHEDULED. RETURN TO THE EMERGENCY DEPARTMENT FOR ANY WORSENING OF YOUR CONDITION; DIFFICULTY SWALLOWING OR BREATHING, YOU FEEL ILL OR QUESTIONS OR CONCERNS. - Billing Disposition and Condition Condition: STABLE Disposition: HOME The documentation as recorded by the Jose De Jesus jin Jennifer accurately reflects the service I personally performed and the decisions made by me, Sunil Mckeon MD.
[2018-01-19 18:08] VITALS: BP 109/71
== END 2018-01-19 18:06 | disposition home or self-care (01) ==
LOC: ED 11:15
DX: R59.1 Generalized enlarged lymph nodes (principal); J02.9 Acute pharyngitis, unspecified; Z87.891 Personal history of nicotine dependence
CPT/HCPCS: 36415; 70491; 80053; 83605; 84702; 85025; 85610; 86140; 86703; 96374; 99282; J0696; J1885; Q9967

== ENCOUNTER 2018-02-01 08:58 | Day surgery (SDC) | payer OTHER ==
[~2018-02-01 08:58] MED LIST: Buffered Lidocaine 0.9% SYRIN* 5 ML/SYR SYRINGE INTRADERM ONE
[2018-02-01] MEDS ORDERED: Oxymetazoline 0.05% NASAL SPR* 15 ML BTL ONE (11:07)
[2018-02-01] MEDS ORDERED: Lidocaine 4% TOPICAL* 50 ML TOP.SOLN ONE (11:07)
[2018-02-01] MEDS ORDERED: Propofol* 10 MG/ML 20 ML BTL IV PUSH ONE (11:24)
[2018-02-01] MEDS ORDERED: fentaNYL* 50 MCG/ML 2 ML VIAL (100 MCG VIAL) ONE (11:24)
[2018-02-01] MEDS ORDERED: Succinylcholine* 20 MG/ML 10 ML VIAL ONE (11:24)
[2018-02-01] MEDS ORDERED: Naloxone* 0.4 MG/ML 1 ML VIAL IV PRN (11:57)
[2018-02-01] MEDS ORDERED: fentaNYL* 50 MCG/ML 2 ML VIAL (100 MCG VIAL) IV PRN (11:57)
[2018-02-01] MEDS ORDERED: oxyCODONE/Acetamin 5/325 MG* TAB PO PRN (11:57)
[2018-02-01] MEDS ORDERED: Acetaminophen ADULT LIQ* 650 MG/20.3 ML UDC ONE (12:16)
[2018-02-01 12:45] VITALS: BP 103/64
--- NOTE | 2018-02-02 08:15 | OP ---
DATE OF OPERATION: 02/01/18 - SDS DATE OF : 75 SURGEON: Dipesh Fraser MD PRE-OP DIAGNOSIS: Right base of tongue mass. POST-OP DIAGNOSIS: Right base of tongue mass. OPERATIVE PROCEDURE: Laryngoscopy with biopsy of right base of tongue under general endotracheal anesthesia. COMPLICATIONS: None. DISPOSITION: Good. SPECIMEN: Right base of tongue biopsies. DESCRIPTION OF PROCEDURE: The patient was taken to the operating room and placed in the supine position on the operating table. General anesthesia orotracheally intubated, turned and draped for the surgery. She has no teeth so I did not have to worry about that. I inserted the laryngoscope and examined her oropharynx, hypopharynx and larynx and no other suspicious areas were seen in the right basal tongue area. It was soft to palpation and appeared under anesthesia to probably be a lot of lymphoid tissue consistent with a big area of lymphoid hyperplasia from her tonsils, but she does have neurofibroma and this could be neurofibroma or other neoplasm. I used a cup biopsy forceps and took multiple biopsies of this area, used cottonoids with oxymetazoline and 0.25% lidocaine for anesthesia and hemostasis. The patient tolerated procedure well, no complications. [id number]/[facility] #: [id number] [facility]
== END 2018-02-01 12:47 | disposition home or self-care (01) ==
LOC: OR 08:58
PROVIDERS: ATTEND Otolaryngology
DX: D37.02 Neoplasm of uncertain behavior of tongue (principal); F32.9 Major depressive disorder, single episode, unspecified; F41.9 Anxiety disorder, unspecified; Z88.8 Allergy status to other drugs, medicaments and biological substances
CPT/HCPCS: 88305; A9270-GY; J0330; J2704; J3010

== ENCOUNTER 2018-05-20 15:14 | Emergency (ER) | payer OTHER ==
[2018-05-20] MEDS ORDERED: Clindamycin 600 MG IVPREMIX(* 600 MG/50 ML SDV IV ONE (18:28)
[2018-05-20] MEDS ORDERED: traMADol TAB* 50 MG PO ONE (18:40)
[2018-05-20 19:56] LABS: ABS Basophils 0 10^3/ul (0-0.2); ABS Eosinophils 0.2 10^3/ul (0-0.6); ABS Lymphocytes 1.7 10^3/ul (1.0-4.8); ABS Monocytes 0.4 10^3/ul (0-0.8); ABS Neutrophils 2.4 10^3/ul (1.5-7.7); ABS Nucleated RBC 0 10^3/ul; Eosinophil % 4.4 % (0-6); Hematocrit 37 % (35-47); Hemoglobin 12.5 g/dl (12.0-16.0); Lymphocyte % 35.7 % (25-47); Mean Corpuscular HGB Conc 34 g/dl (31-36); Mean Corpuscular Hemoglobin 31 pg (27-31); Mean Corpuscular Volume 91 fL (80-97); Mean Platelet Volume 8.6 um3 (7.4-10.4); Nucleated Red Blood Cells % 0.1; Platelet Count 128 10^3/ul (150-450); Red Blood Count 4.03 10^6/ul (4.00-5.40); Red Cell Distribution Width 13 % (10.5-15); White Blood Count 4.8 10^3/ul (3.5-10.8)
[2018-05-20 20:10] LABS: EGFR Non-African American 54.5 (>60)
[2018-05-20] MEDS ORDERED: Cephalexin CAP* 500 MG PO ONE (20:53)
--- NOTE | 2018-05-20 21:07 | ED ---
Skin Complaint - HPI Summary HPI Summary: Patient is an otherwise healthy 42-year-old female presenting to the ED with a left-sided leg cellulitis over the past 2 days. She denies any known bug bites or insertion sites for bacteria. There is no obvious skin abrasions or abscesses. Rash extends from the mid thigh just below the knee, slightly erythematous and slightly warm to the touch. She has never had a cellulitis in the past. She is not immunocompromised and denies any history of diabetes. She has not taken anything for pain or for relief. She endorses a mild amount of pain on palpation to the area, however denies any other symptoms. Denies any fevers, sweats, chills. Symptoms have been present for 2 days. Worse with ambulation, better with rest and ice. - History of Current Complaint Chief Complaint: EDRashSkinAbscess Time Seen by Provider: 05/20/18 17:53 Stated Complaint: LT LEG SWELLING Hx Obtained From: Patient Onset/Duration: Started Days Ago Skin Exposure Onset/Duration: Days Ago Timing: Constant Onset Severity: Moderate Current Severity: Moderate Pain Intensity: 7 Pain Scale Used: 0-10 Numeric Skin Location: Discrete - Left Leg Aggravating Symptom(s): Nothing Alleviating Symptom(s): Nothing Associated Signs & Symptoms: Negative - Additional Pertinent History Primary Care Physician: DIMITRIOS - Allergy/Home Medications Allergies/Adverse Reactions: Allergies Allergy/AdvReac Type Severity Reaction Status Date / Time carbamazepine Allergy Severe WBC - Verified 05/20/18 15:16 LEVELS DROPPED SEVERELY PMH/Surg Hx/FS Hx/Imm Hx Previously Healthy: Yes Endocrine/Hematology History: Denies: Hx Diabetes Cardiovascular History: Denies: Hx Hypertension, Hx Pacemaker/ICD Respiratory History: Reports: Hx Sleep Apnea History: Denies: Hx Renal Disease Musculoskeletal History: Denies: Hx Arthritis, Hx Osteoporosis Sensory History: Denies: Hx Contacts or Glasses, Hx Hearing Aid Opthamlomology History: Denies: Hx Contacts or Glasses Neurological History: Reports: Hx Headaches - every now and then, Hx Migraine, Hx Nerve Disease - neurofibromatosis type 1, Hx Seizures - a long time ago- none recent, Other Neuro Impairments/Disorders - neurofibosis Psychiatric History: Reports: Hx Anxiety, Hx Depression Denies: Hx Panic Disorder - Cancer History Hx Chemotherapy: No Hx Radiation Therapy: No - Surgical History Surgery Procedure, Year, and Place: TUBAL LIGATION 2000. HYSTERECTOMY 2014. FACIAL - NEUROFIBROMATOSIS Hx Anesthesia Reactions: No - Immunization History Hx Pertussis Vaccination: No Immunizations Up to Date: Unable to Obtain/Confirm Infectious Disease History: No Infectious Disease History: Denies: Traveled Outside the [place] in Last 30 Days - Family History Known Family History: Positive: Cardiac Disease - positive for [place] to father in his 40s. , Other - Positive for breast CA. - Social History Occupation: Employed Full-time Lives: With Family Alcohol Use: None Hx Substance Use: No Substance Use Type: Reports: None Hx Tobacco Use: No Smoking Status (MU): Former Smoker Amount Used/How Often: smoked off and on for 10 years less than 1/2 pack a day Review of Systems Constitutional: Negative Negative: Fever, Chills, Fatigue, Skin Diaphoresis Negative: Palpitations, Chest Pain Negative: Shortness Of Breath, Cough Genitourinary: Negative Positive: no symptoms reported, see HPI Negative: Arthralgia, Myalgia Positive: Other - erythema and warmth from the dorsum side of the mid thigh extending down into the mid lower ext Neurological: Negative Psychological: Normal All Other Systems Reviewed And Are Negative: Yes Physical Exam Triage Information Reviewed: Yes Vital Signs On Initial Exam: Initial Vitals Temp Pulse Resp BP Pulse Ox 99.2 F 80 14 122/70 99 05/20/18 15:16 05/20/18 15:16 05/20/18 15:16 05/20/18 15:16 05/20/18 15:16 Vital Signs Reviewed: Yes Appearance: Positive: Well-Appearing, Well-Nourished Skin: Positive: Warm, Skin Color Reflects Adequate Perfusion, Other - erythema and warmth from the dorsum side of the mid thigh extending down into the mid lower ext Head/Face: Positive: Normal Head/Face Inspection Eyes: Positive: EOMI, RUSLAN, Conjunctiva Clear Neck: Positive: Nontender Respiratory/Lung Sounds: Positive: Clear to Auscultation, Breath Sounds Present Cardiovascular: Positive: RRR, Pulses are Symmetrical in both Upper and Lower Extremities Musculoskeletal: Positive: Normal, Strength/ROM Intact Neurological: Positive: Speech Normal Psychiatric: Positive: Normal, Affect/Mood Appropriate AVPU Assessment: Alert Diagnostics - Vital Signs Vital Signs Temp Pulse Resp BP Pulse Ox 05/20/18 17:19 98.5 F 79 16 108/66 99 05/20/18 15:16 99.2 F 80 14 122/70 99 - Laboratory Lab Results: Lab Results 05/20/18 05/20/18 05/20/18 Range/Units 19:39 19:39 19:39 WBC 4.8 (3.5-10.8) 10^3/ul RBC 4.03 (4.00-5.40) 10^6/ul Hgb 12.5 (12.0-16.0) g/dl Hct 37 (35-47) % MCV 91 (80-97) fL MCH 31 (27-31) pg MCHC 34 (31-36) g/dl RDW 13 (10.5-15) % Plt Count 128 L (150-450) 10^3/ul MPV 8.6 (7.4-10.4) um3 Neut % (Auto) 49.6 (38-83) % Lymph % (Auto) 35.7 (25-47) % [place] % (Auto) 9.3 H (0-7) % Eos % (Auto) 4.4 (0-6) % Baso % (Auto) 1.0 (0-2) % Absolute Neuts (auto) 2.4 (1.5-7.7) 10^3/ul Absolute Lymphs (auto) 1.7 (1.0-4.8) 10^3/ul Absolute Monos (auto) 0.4 (0-0.8) 10^3/ul Absolute Eos (auto) 0.2 (0-0.6) 10^3/ul Absolute Basos (auto) 0 (0-0.2) 10^3/ul Absolute Nucleated RBC 0 10^3/ul Nucleated RBC % 0.1 ESR Pending Sodium 136 (135-145) mmol/L Potassium 4.0 (3.5-5.0) mmol/L Chloride 106 (101-111) mmol/L Carbon Dioxide 27 (22-32) mmol/L Anion Gap 3 (2-11) mmol/L BUN 11 (6-24) mg/dL Creatinine 1.10 H (0.51-0.95) mg/dL Est GFR ( Amer) 65.9 (>60) Est GFR (Non-Af Amer) 54.5 (>60) BUN/Creatinine Ratio 10.0 (8-20) Glucose 108 H (70-100) mg/dL Lactic Acid 0.8 (0.5-2.0) mmol/L Calcium 8.3 L (8.6-10.3) mg/dL Total Bilirubin 0.30 (0.2-1.0) mg/dL AST 26 (13-39) U/L ALT 23 (7-52) U/L Alkaline Phosphatase 41 (34-104) U/L C-Reactive Protein 13.16 H (<8.01) mg/L Total Protein 6.4 (6.4-8.9) g/dL Albumin 3.7 (3.2-5.2) g/dL Globulin 2.7 (2-4) g/dL Albumin/Globulin Ratio 1.4 (1-3) Result Diagrams: 05/20/18 19:39 05/20/18 19:39 Lab Statement: Any lab studies that have been ordered have been reviewed, and results considered in the medical decision making process. Course/Dx - Course Course Of Treatment: Labs obtained. WBC is WNL. Blood cultures not obtained at this time. The border is drawn around the edges and patient is given IV 6 and a milligrams clindamycin in the ED. As labs are WNL and vital signs are stable and patient feels otherwise well, she will be discharged home with Keflex 500 mg 4 times daily 7 days and is given strict return precautions for return. She is also given 1 tramadol while in the ED for discomfort. She is encouraged cold compresses. - Differential Diagnoses - Skin Complaint Differential Diagnoses: Cellulitis - Diagnoses Provider Diagnoses: Cellulitis Discharge - Sign-Out/Discharge Documenting (check all that apply): Patient Departure - Discharge Plan Condition: Stable Disposition: HOME Prescriptions: Cephalexin CAP* [Keflex CAP*] 500 mg PO QID #28 cap MDD 4 Patient Education Materials: Cellulitis (ED) Referrals: Reinaldo PARHAM,Reji Najera [Primary Care Provider] - Additional Instructions: Keflex 4x daily x 7 days - Billing Disposition and Condition Condition: STABLE Disposition: Home
[2018-05-20 21:19] VITALS: BP 131/74
== END 2018-05-20 21:00 | disposition home or self-care (01) ==
LOC: ED 15:14
DX: L03.116 Cellulitis of left lower limb (principal); Z88.8 Allergy status to other drugs, medicaments and biological substances; Z87.891 Personal history of nicotine dependence
CPT/HCPCS: 36415; 80053; 83605; 85025; 85652; 86140; 96365; 99283; A9270-GY

== ENCOUNTER 2018-07-27 09:22 | Emergency (ER) | payer OTHER ==
--- NOTE | 2018-07-27 10:43 | ED ---
Complex/Multi-Sys Presentation - HPI Summary HPI Summary: A 43 y/o F with neurofibromatosis presents with lice for 1.5 weeks. Pt has tried prescription NIX treatment on 07/17, 07/19 and 07/20 with no relief. She tried a home remedy of olive oil which also did not help. She stated she did a treatment two days ago. Pt is experiencing diffuse scalp pain, itchy scalp and blisters to scalp. She typically has raised bumps on her scalp due to neurofibromatosis, but they seem to have become inflamed. She has removed bugs, nits, and eggs from her hair, although no live bugs recently. Pt denies lice under her arms and in her pubic area. She has had no previous episodes of lice, and no one else in the home has lice. She states she has been spraying and cleaning the house thoroughly. She sees Dr. Reji Najera, PCP who prescribed the lice treatment. She lives with her son and parents. Denies daily medication. Allergies discussed. SHx: face and ear surgeries, adenoidectomy, tonsillectomy, tubal. She has a facial surgery upcoming with Dr. Strange, plastic surgery. Vital signs while in room: BP 105/70. Home Medications Medication Instructions Recorded Confirmed Type NK [No Home Medications Reported] 07/27/18 07/27/18 History - History Of Current Complaint Chief Complaint: EDGeneral Time Seen by Provider: 07/27/18 10:29 Hx Obtained From: Patient Onset/Duration: Gradual Onset, Lasting Weeks - 1.5 weeks, Still Present Timing: Constant Severity Currently: Severe Severity Initially: Moderate Location: Pain At: - scalp Character: Sharp - itchy Aggravating Factor(s): Nothing Alleviating Factor(s): Nothing Associated Signs And Symptoms: Positive: Other - pos: scalp itching, blisters on scalp - Allergies/Home Medications Allergies/Adverse Reactions: Allergies Allergy/AdvReac Type Severity Reaction Status Date / Time carbamazepine Allergy Severe WBC - Verified 07/27/18 09:43 LEVELS DROPPED SEVERELY PMH/Surg Hx/FS Hx/Imm Hx Previously Healthy: No Endocrine/Hematology History: Denies: Hx Diabetes Cardiovascular History: Denies: Hx Hypertension, Hx Pacemaker/ICD Respiratory History: Reports: Hx Sleep Apnea History: Denies: Hx Renal Disease Musculoskeletal History: Denies: Hx Arthritis, Hx Osteoporosis Sensory History: Denies: Hx Contacts or Glasses Opthamlomology History: Denies: Hx Contacts or Glasses Neurological History: Reports: Hx Headaches - every now and then, Hx Migraine, Hx Nerve Disease - neurofibromatosis type 1, Hx Seizures - a long time ago- none recent Psychiatric History: Reports: Hx Anxiety, Hx Depression Denies: Hx Panic Disorder - Cancer History Hx Chemotherapy: No Hx Radiation Therapy: No - Surgical History Surgery Procedure, Year, and Place: TUBAL LIGATION 1999. HYSTERECTOMY 2013. FACIAL - NEUROFIBROMATOSIS. adenoidectomy Hx Anesthesia Reactions: No Infectious Disease History: No Infectious Disease History: Denies: Traveled Outside the [place] in Last 30 Days - Family History Known Family History: Positive: Cardiac Disease - positive for [place] to father in his 40s. , Other - Positive for breast CA. Family History: neurofibromatosis - father - Social History Occupation: Unemployed Lives: With Family Alcohol Use: None Hx Substance Use: No Substance Use Type: Reports: None Hx Tobacco Use: No Smoking Status (MU): Former Smoker Amount Used/How Often: smoked off and on for 10 years less than 1/2 pack a day Review of Systems Negative: Fever Cardiovascular: Negative Respiratory: Negative Gastrointestinal: Negative Negative: other - neg: lice to pubic area Skin: Other - pos: diffuse scalp itching and pain; blisters on scalp Negative: Other - neg: lice to underarms Neurological: Negative Psychological: Normal All Other Systems Reviewed And Are Negative: Yes Physical Exam - Summary Physical Exam Summary: Appearance: Well-appearing, moderate pain distress, well-nourished. Skin: Warm, color reflects adequate perfusion, dry Head: Atraumatic, Neurofibromatosis to face. Multiple excoriated, raised, lesions on scalp and nits in hair. No live bugs noted. No rash noted else where. Eyes: Conjunctiva clear ENT: Normal inspection Neck: Supple, no nodes, no JVD Respiratory: Lungs clear, normal breath sounds, no respiratory distress Cardio: RRR, No murmur, pulses normal, brisk capillary refill Abdomen: Soft, nontender Bowel sounds: Present Musculoskeletal: Strength Intact/ROM intact, no calf tenderness, no edema. Psychological: Normal Neuro: Alert, muscle tone normal, no focal deficit Triage Information Reviewed: Yes Vital Signs On Initial Exam: Initial Vitals Temp Pulse Resp BP Pulse Ox 98.6 F 70 18 105/70 98 07/27/18 09:40 07/27/18 09:40 07/27/18 09:40 07/27/18 09:40 07/27/18 09:40 Vital Signs Reviewed: Yes Diagnostics - Vital Signs Vital Signs Temp Pulse Resp BP Pulse Ox 07/27/18 09:40 98.6 F 70 18 105/70 98 - Laboratory Lab Statement: Any lab studies that have been ordered have been reviewed, and results considered in the medical decision making process. Re-Evaluation - Re-Evaluation 1 Re-Evaluation Time: 11:51 Change: Improved Comment: Pain medication has helped, pt is feeling improved. She has her cap back on. 2 Re-Evaluation Time: 12:00 Change: Unchanged Comment: Discussing consult with Dr. Membreno who agrees with oral anti-lice treament. Discussing disposition. Complex Multi-Symp Course/Dx Course Of Treatment: A 43 y/o F with neurofibromatosis presents with lice for 1.5 weeks. Pt is experiencing diffuse scalp pain, itchy scalp and blisters to scalp. She typically has raised bumps on her scalp, but they seem to have become inflamed. Multiple topical lice treatments attempted with no relief. Upon PE: pt has multiple excoriated, raised lesions to scalp and nits in hair. No live bugs visualized. Pt given hydrocodone in ED. Discussed with Dr. Membreno, infectious diseases, who agrees with Oral Ivermectin treatment. Allergies noted. Pt medications reviewed this visit. Pharmacy called to clarify ivermectin dose. Intended 0.2mg/kg po q 10 days x 2 doses. 16.3mg, rounded to 15mg po q 10 days x 2 doses. They are 3 mg tabs, so each dose is 5 tabs, so total RX will be #10 tabs, not #6 tabs. - Diagnoses Provider Diagnoses: Pediculosis capitis - Physician Notifications Discussed Care Of Patient With: Trever Membreno MD - infectious disease Time Discussed With Above Provider: 11:52 Instructed by Provider To: Other - Agrees with Oral Ivermectin treatment. Discharge - Sign-Out/Discharge Documenting (check all that apply): Patient Departure - DC - Discharge Plan Condition: Stable Disposition: HOME Prescriptions: Ivermectin (NF) [Stromectol (NF)] 15 mg PO ONCE #6 tab Patient Education Materials: Pediculosis (ED) Referrals: Reinaldo PARHAM,Reji Najera [Primary Care Provider] - 2 Days Additional Instructions: We have discussed your care with Dr. Membreno from infectious diseases, and he agrees with continued combing to remove nits and the cleaning measures. He also recommends oral ivermectin 15mg orally today and then repeat in 10 days. Return to the ER if you have new or worsening symptoms. - Billing Disposition and Condition Condition: STABLE Disposition: Home - Attestation Statements Document Initiated by Barbibe: Yes Documenting Scribe: Cindy Walker Provider For Whom Franco is Documenting (Include Credential): Dr. Mary Dunbar MD Scribe Attestation: Cindy Pinon, scribed for Dr. Mary Dunbar MD on 08/01/18 at 1545. Scribe Documentation Reviewed: Yes Provider Attestation: The documentation as recorded by the Cindy jin accurately reflects the service I personally performed and the decisions made by , Dr. Mary Dunbar MD
[2018-07-27] MEDS ORDERED: HYDROcodone/ACETAMIN 5-325 MG* 1 TAB PO ONE (11:03)
[2018-07-27 12:05] VITALS: BP 120/74
== END 2018-07-27 12:04 | disposition home or self-care (01) ==
LOC: ED 09:22
DX: B85.0 Pediculosis due to Pediculus humanus capitis (principal); Q85.01 Neurofibromatosis, type 1; Z88.8 Allergy status to other drugs, medicaments and biological substances
CPT/HCPCS: 99282